=== PATIENT | male | born 1945 | race Caucasian/White ===

== ENCOUNTER 2024-12-24 16:59 | Emergency (ER) | payer MEDICARE, SELFPAY ==
[2024-12-24 17:03] VITALS: BP 154/79; PULSE 72; RESP 18; TEMP 36.3; O2SAT 98
--- NOTE | 2024-12-24 20:00 | DI.CT_ITS ---
Exam(s) CT HEAD ORBITS WO/W EXAM: CT HEAD ORBITS WO/W CLINICAL HISTORY: L eye vision changes. TECHNIQUE: Imaging Protocol: Axial computed tomography images with coronal and sagittal reformatted images were created and reviewed. CONTRAST MATERIAL: Intravenous: Omnipaque 350 Contrast volume:100 COMPARISON: No exams were available for comparison FINDINGS: Head: Ventricles and Extra axial spaces: Normal in size and morphology for the patient's age. Hemorrhage: None. Cerebral parenchyma: There are areas of decreased attenuation in the white matter consistent with chronic microvascular ischemic disease. There is no evidence to suggest an acute territorial infarct or mass effect. Enhancement: No suspicious enhancement. [place] of [place]: Unremarkable. Midline shift: None. Brainstem/Cerebellum: Normal. Calvarium: Normal. Visualized Paranasal sinuses/Mastoids: Clear. Pituitary gland: Unremarkable. There is no evidence of a pituitary, sellar or suprasellar mass. CT face/orbits: Facial Bones: No definite fracture is noted in facial bones. Sinuses and Mastoids: Unremarkable. Globes, extraocular muscles, optic nerves and retrobulbar fat: Normal. Upper aerodigestive tract: Normal. Mandible and bilateral temporomandibular joints: Normal. Soft tissues: Normal. IMPRESSION: 1. No acute intracranial process. No intracranial mass or enhancing lesion. 2. The orbits and retro-orbital soft tissues are grossly unremarkable. RADIATION DOSE DELIVERED: 2,068.55mGy.cm Total DLP DATA REPOSITORY: All CT scans at this facility are submitted to the National Radiology Data Registry (NRDR) Dose Index Registry (DIR) with the [employer] (A[employer]). RADIATION OPTIMIZATION: All CT scans at this facility use at least one of these dose optimization techniques: automated exposure control; mA and/or kV adjustment per patient size (includes targeted exams where dose is matched to clinical indication); or iterative reconstruction.
--- NOTE | 2024-12-24 20:07 | ED.GENADUL_ITS ---
Discharge Plan Disposition Patient Disposition: Home Condition: Stable Discharge Details Clinical Impression: Blurred vision, left eye Primary Care Provider: Sheila Sanchez ED Provider: Haider Stock Discharge Instructions Instructions: Optic neuritis, Floaters in the Eye Additional Instructions: You were seen in the emergency department for your painless blurry vision of your left eye, you described this as not a loss of vision or curtain coming down but the blurred line across your vision and occasional darker blurred spot at the 10 o'clock position of your left eye. You have no eye pain and your intraocular pressure was normal, you have 20/40 vision in both eyes and bilaterally and no loss of visual taylor. The CT of your head is not read by radiologist yet but shows no intracranial mass, no bleeding-I spoke with Dr. Silva, an officer captain at [facility] by your request, they recommend we add on to blood test to rule out giant cell arteritis which would be a rare condition of painless vision changes. I am discharging you without these lab results but you can get them from us tomorrow. I have ordered an outpatient MRI for you to take place here at [facility] tomorrow, please call the MRI department in the morning for time to get this performed. Please call your primary care provider as well as [facility], if it is more convenient for you to get an MRI at [facility] please do so, please present to a facility with ophthalmology capability for any sudden severe increase in eye pain, complete loss of vision or other sudden changes to vision like double vision. Referrals: Sheila Sanchez [Primary Care Provider, Medicine] Discharge Data Discharge Date/Time-TO BE ENTERED AT DEPARTURE: 12/24/24 23:15 HPI General Date/Time Provider Initiated Documentation: 12/24/24 17:09 . HPI Narrative: 79 year-old male presents to ED today by POV/ambulating with a chief complaint of sent over from [facility] for MRI for subjective report of L eye papilledema, no MRI available at time of presentation, no visit note sent over with onset of 1 month of intermittent blurred/dark spot in L eye at 10 o'clock position and an occasional blurred convex line in his upper L eye vision that he believes to be intermittent. Quality described as not painful, no radiation to double vision, loss of vision, slurred speech, confusion, motor deficits, chest pain, shortness of breath, tinnitus. Severity is described as mild to moderate. Palliating factors include nothing specific. Provoking factors include nothing specific. Patient not anticoagulated. Related Data Allergies Allergy/AdvReac Type Severity Reaction Status Date / Time venom-honey bee Allergy Severe swelling Verified 12/24/24 17:10 General Stated Complaint: EyeProblem ROMINA: 3 Review of Systems All systems reviewed & are unremarkable except as noted in HPI and below Exam Narrative Exam Narrative: GENERAL APPEARANCE: Well-nourished, non-toxic, awake and alert, atraumatic, no acute distress. SKIN: Warm, pink, dry, intact, without rashes/lesions/ulcerations. HEAD: Normocephalic, atraumatic, normal hair distribution for gender/age. EYES: Normal conjunctiva, no exudates on lids/lashes, pupils PERRLA, red reflex intact, no AV nicking or stormy sunset seen on funduscopic exam, visual taylor intact, IOP within normal limits 17 bilaterally, 20/40 both eyes and bilaterally, EOMS intact without pain ENT: Nares patent, no circumoral cyanosis, no facial swelling NECK: Supple, trachea midline, painless cervical ROM. LUNGS/CHEST: Non-labored respirations, normal A/P diameter, symmetrical expansion, no chest wall deformity HEART (CV/PV): No peripheral edema, no JVD. ABDOMEN: Soft, non-distended, no guarding. MSK: Normal ROM, no swelling/deformity to bilateral UEs or LEs, moving all extremities without weakness, no cyanosis, spine midline without tenderness, normal curvature. NEURO: Mental Status AAOx4 - alert to person, place, time, events No facial droop, no forehead involvement. Motor: No focal weakness - strength 5/5 in bilateral UEs and LEs, proximal and distal, symmetric. Sensory: sensation intact to light touch globally. Gait normal: patient ambulated without ataxia into ED room. PSYCH: euthymic, cooperative, pleasant, appropriate speech Course Vital Signs Vital signs: Vital Signs Temperature 36.3 C L 12/24/24 17:03 Pulse 72 12/24/24 17:03 Respiratory Rate 18 12/24/24 17:03 Blood Pressure 154/79 H 12/24/24 17:03 Pulse Oximetry 98 12/24/24 17:03 Temperature 36.3 C L 12/24/24 17:03 Temperature Source Oral 12/24/24 17:03 Pulse 72 12/24/24 17:03 Respiratory Rate 18 12/24/24 17:03 Blood Pressure 154/79 H 12/24/24 17:03 Blood Pressure Position Sitting 12/24/24 17:03 Pulse Oximetry 98 12/24/24 17:03 Oxygen Delivery Method Room Air 12/24/24 17:03 Oxygen Flow Rate 0 12/24/24 17:03 Pain Level 0 12/24/24 17:03 Medical Decision Making This dictation utilizes [id number] dictation software and may contain unedited grammatical errors. 79 year-old male presents to ED today by POV/ambulating with a chief complaint of sent over from [facility] for MRI for subjective report of L eye papilledema, no MRI available at time of presentation, no visit note sent over with onset of 1 month of intermittent blurred/dark spot in L eye at 10 o'clock p osition and an occasional blurred convex line in his upper L eye vision that he believes to be intermittent. Quality described as not painful, no radiation to double vision, loss of vision, slurred speech, confusion, motor deficits, chest pain, shortness of breath, tinnitus. Severity is described as mild to moderate. Palliating factors include nothing specific. Provoking factors include nothing specific. Patients' medical history: [ ]. Family and social history: [ ]. Pertinent exam findings / vital signs include pupils PERRLA, red reflex intact, no AV nicking or stormy sunset seen on funduscopic exam, visual taylor intact, IOP within normal limits 17 bilaterally, 20/40 both eyes and bilaterally. Differential / pathologies of concern include optic neuritis, retinal detachment, macular degeneration, acute angle glaucoma, CRVO/CRAO, not conjunctivitis/scleitis/episcleritis. Diagnostic studies of: -CBC, CMP, CRP/ESR, CT Head & Orbits wo/w Contrast. -CBC benign -CRP/ESR neg -CMP benign -CT head orbits without abnormality Interventions of: -Consult ophtho at [facility] per patient request- they recommned he seek further guidance from [facility]- but do not feel any need for transfer or admission based on history and findings. -MRI Brain & Orbit wo/w contrast ordered for tomorrow here- patient may try to get this done at [facility] as he lives in [place]- he is to call [facility] as well for further guidance. ED Course/Assessment/Plan: 79-year-old male seen at [facility] balance specialist office earlier today was recommended getting an MRI for possible unilateral optic neuritis or papilledema though we did not receive records from send optometry office. MRI is not available after 4 PM here patient was seen after this, he has no eye pain has what he refers to as darkened or blurred vision without vision loss, he does not have extreme uncontrolled hypertension, he has no headache or tenderness to the temporal scalp and no curtain coming down affect, his funduscopic exam showed no stormy corina or sunset of CRVO, visual taylor are intact and he is neurologically intact, his intraocular pressure was normal his vision is 20/40 in both eyes and bilaterally. I did speak with the Dr. Mcdowell from [facility] ophthalmology, diagnosis is unclear at this point but sees no emergent pathology warranting transfer or admission, does recommend following up with clear direction from credit balance specialist on what study they need and the timing of said study, she recommend I added on CRP ESR to rule out atypical presentation of giant cell arteritis which were both negative, his CT of his head and orbits showed no acute abnormalities, I counseled the patient on immediate return to emergency department preferably with ophthalmology support for any sudden increase in eye pain or loss of vision but that he could have an MRI performed outpatient here tomorrow or pursue this nearer to his home in [facility] tomorrow. Findings not consistent with acute angle glaucoma, classic optic neuritis, temporal arteritis, orbital cellulitis. Disposition of Blurred Vision, Left Eye. Patient verbalized understanding of the plan and return to ED criteria and engaged in shared decision making. Medical Records Medical records reviewed: Yes I reviewed the patient's medical records. Lab Data Lab results reviewed: Yes I reviewed the patient's lab results. PFSH All Active Problems (Updated 12/24/24 @ 23:14 by AILYN Acuña) Blurred vision, left eye (Acute) ?papilledema Social History Smoking/Tobacco Use Status: Former Tobacco Use Smoking risk assessment performed?: Yes Alcohol Intake: current Alcohol Intake frequency: 0-2 drinks per day Alcohol type: beer Substance use type: does not use Housing: house Do you feel safe at home: Yes Do you feel safe in your relationship?: Yes PAWSS Have you Been Recently Intoxicated or Drunk Within the Last 30 days?: No Have you Ever Experienced Previous Episodes of Alcohol Withdrawal?: No Have you ever Experienced Withdrawal Seizures?: No Have you ever Experienced Delirium Tremens(DT)s?: No Have you ever undergone Alcohol Rehabilitation Treatment (i.e, inpt ot outpatient treatment programs)?: No Have you ever Experienced Blackouts?: No Have you ever Combined Alcohol with other Downers within the last 90 days?: No Have you ever Combined Alcohol with any other Substance of Abuse during the last 90 days?: No Positive Blood Alcohol level on Presentation? [PCS.BAL]: No Evidence of Increased Autonomic Activity (i.e. HR>120, tremor, sweating, agitation, nausea)?: No Result: 0
[2024-12-24 20:43] LABS: Abs Immature Grans 0.02 10^3/uL (0.0-0.06); HCT 41.5 % (40.0-50.0); HGB 14.8 g/dL (13.5-17.5); Immature Grans % 0.3 %; MCH 32.7 pg (27.0-33.0); MCHC 35.7 % (32.0-36.0); MCV 92 fL (80-95); MPV 10.0 fL (8.0-11.0); Platelet Count 190 10^3/uL (130-400); RBC 4.52 10^6/uL (4.36-5.78); RDW 11.3 % (11.8-14.1); RDW-SD 38.5 fL; WBC 7.42 10^3/uL (4.4-10.8)
[2024-12-24 20:58] LABS: ALT 21 U/L (16-63); AST 18 U/L (15-37); Albumin 4.3 g/dL (3.4-5.0); Alkaline Phosphatase 51 U/L (46-116); Anion Gap 11.1 mmol/L (3-11); BUN 24 mg/dL (7-18); Bilirubin, Total 1.7 mg/dL (0.2-1.0); CO2 26.9 mmol/L (21.0-32.0); Calcium 9.5 mg/dL (8.5-10.1); Chloride 99 mmol/L (98-107); Estimated GFR 76.56 (mL/min/1.73m2); Glucose 110 mg/dL (74-106); Potassium 5.3 mmol/L (3.5-5.1); Sodium 137 mmol/L (136-145); Total Protein 8.0 g/dL (6.4-8.2)
[2024-12-24] MEDS: Normal Saline - Diluent 50 ML VIAL IJ (21:11)
[2024-12-24] MEDS: Omnipaque 350 MG/ML 100 ML BTL IJ (21:12)
[2024-12-24 22:06] VITALS: BP 137/55; PULSE 62; RESP 16; TEMP 36.7; O2SAT 99
[2024-12-24 22:38] LABS: ESR 3 mm/hr (0-20)
[2024-12-24 22:43] LABS: C-Reactive Protein < 0.50 mg/dL (<or=0.5)
--- NOTE | 2024-12-24 23:05 | DI.VRAD_ITS ---
PROCEDURE INFORMATION: Exam: CT Head Without And With Contrast Exam date and time: 12/24/2024 9:13 PM Age: 79 years old Clinical indication: Visual disturbance; L eye vision changes TECHNIQUE: Imaging protocol: Computed tomography of the head without and with contrast. Radiation optimization: All CT scans at this facility use at least one of these dose optimization techniques: automated exposure control; mA and/or kV adjustment per patient size (includes targeted exams where dose is matched to clinical indication); or iterative reconstruction. Contrast material: OMNIPAQUE 350; Contrast volume: 100 ml; Contrast route: INTRAVENOUS (IV); COMPARISON: No relevant prior studies available. FINDINGS: Brain: Normal. No hemorrhage. Unremarkable white matter. No mass effect. Cerebral ventricles: No ventriculomegaly. Paranasal sinuses: Visualized sinuses are unremarkable. No fluid levels. Mastoid air cells: Visualized mastoid air cells are well aerated. Bones: Unremarkable. No acute fracture. Soft tissues: Small posterior scalp subcutaneous cysts IMPRESSION: No acute intracranial abnormality. Dictated and Authenticated by: Niurka Ro MD. Orderin Dayami Maloney MD
--- NOTE | 2024-12-25 09:41 | NUR.NOTE ---
Nursing Note: Pt's daughter called asking about the need for the MRI. I told her that it says in the discharge note that he should have one and that the provider put in the note that he ordered one to be done today here at [facility]. She asked if she could schedule it with me and I told her that it needed to be done through [facility]. She stated that she already spoke with them and they sent her to us in the ED. Fiordaliza spoke with [facility] about what was needed and got it all figured out. They had spoken with the daughter already to do the screening and told her that she would be contacted with a time when they had one. The patient then called back a few more times confused with the process. We told her that they would call her with a time and that there is nothing more that she needs to do other than answer the phone when they call her and then bring her father to the appointment. She was satisfied with that and plans to pay attention so she does not miss the phone call.
--- NOTE | 2024-12-25 10:40 | NUR.NOTE ---
Nursing Note: this RN in PT chart D/T PT POA having questions about prior visit from 12/24/24
== END 2024-12-24 23:15 | disposition home or self-care (01) ==
PROVIDERS: Emergency Provider Physician Assistant; PCP Internal Medicine
DX: H53.8 Other visual disturbances (principal); I10 Essential (primary) hypertension
CPT/HCPCS: 99284; 99285; 80053; 85652; 70470; 70482; 85025; 86140; J3490

== ENCOUNTER 2024-12-25 10:38 | Outpatient (CLI) | payer MEDICARE, SELFPAY ==
--- NOTE | 2024-12-25 10:30 | DI.MRI_ITS ---
Exam(s) MR BRAIN WO/W EXAM: MR BRAIN WO/W CLINICAL HISTORY: blurred vision; unilateral papilledema TECHNIQUE: Multiplanar multisequence MRI of the brain was performed. Both noninfused and contrast infused sequences were performed. IV Contrast injected was 12 cc Dotarem. COMPARISON: CT CT HEAD ORBITS WO/W from 12/24/2024 FINDINGS: CEREBRAL PARENCHYMA: No evidence of intracranial hemorrhage, mass effect nor shift of midline structure. No extraaxial fluid collections. Ventricles are not enlarged nor shifted. There is no significant focal signal abnormality in the cerebellar hemispheres nor within the dorian, midbrain, and thalami. There few small nonspecific foci of periventricular matter signal abnormality, not associated with hemorrhage, surrounding edema, enhancement, nor restricted diffusion. These are most probably related to chronic small vessel disease. DWI: No areas of restricted diffusion to suggest acute ischemic event. SWI: No microhemorrhages evident. There are no ring enhancing lesions in the brain. There is no abnormal meningeal enhancement. PITUITARY GLAND: No mass nor parasellar abnormality. No obvious abnormality in the cavernous sinuses. IAC'S: No evidence of mass in the cerebellopontine angles and no evidence of intra canalicular acoustic neuroma. FLOW VOIDS: The expected flow void are noted. No evidence of obvious aneurysm nor obvious vascular malformation. PARANASAL SINUSES: The visualized paranasal sinuses appear unremarkable. ORBITS: No obvious abnormal findings. IMPRESSION: 1. No significant intracranial findings on this MRI scan of the brain. Mild chronic small-vessel white matter ischemic changes noted in the periventricular white matter. No evidence of restricted diffusion to suggest recent ischemic event. 2. No abnormal enhancing intracranial findings. There are no ring enhancing lesions in the brain and there is no abnormal meningeal enhancement. DATA REPOSITORY:
[2024-12-25] MEDS: Gadoterate meglumine 20 ML VIAL 12 ML IVP (15:02)
[2024-12-25] MEDS: Normal Saline Flush 10 ML SYR IJ (15:05)
== END 2024-12-25 10:58 ==
LOC: DI 10:38
PROVIDERS: PCP Internal Medicine; Visit Provider Physician Assistant
DX: H53.8 Other visual disturbances (principal)
CPT/HCPCS: 70553